=== PATIENT | male | born 1925 | race Caucasian/White ===

== ENCOUNTER 2017-02-06 08:29 | Outpatient (CLI) | payer MEDICARE, BC ==
[~2017-02-06] VITALS: Ht 177.8 cm; Wt 96.0 kg
--- NOTE | ~2017-02-06 | CATH ---
Cardiac Diagnostic Report Demographics Patient Name EROS Gould Gender Male Date of 1925 Age 89 year(s) Patient Number [id number] Date of Study 02/06/2017 Visit Number [id number] Room Number G63[address] [place] [id number] Ht 182.88 cm Wt 96 kg Referring [facility] Primary Physician Physician Gigi Steward MD Performing [facility] Secondary Physician Physician Gigi Steward MD Diagnostic [facility] Assisting Physician Physician Gigi Steward MD Interventional Physician Cutter [facility]ana Room Physician Findings and Conclusions Diagnostic Findings and Conclusion Severe three vessel disease Severe Diagnostic Recommendations TAVR +PCI's versus Re-do CABG and AVR Procedure Description The patient was brought to the diagnostic cardiac catheterization-EP laboratory in the fasting, non-sedated state. Informed consent was obtained in the written and verbal form after the risks and benefits were explained. The patient had no further questions and agreed to proceed. The planned puncture-incision site(s) were shaved and prepped with ChloraPrep and draped in the usual sterile manner. Conscious sedation, supplemental oxygen, and pain control medications were delivered by a registered nurse under physician guidance. Surface ECG rhythm, blood pressure measurement, and pulse oximetry were monitored throughout the procedure. Arterial access. The access site was infiltrated with lidocaine. The vessel was entered with the Seldinger technique. A sheath was advanced into the vessel and used for catheter placement. Venous access. The access site was infiltrated with 2% lidocaine. The vessel was entered with the Seldinger technique. A sheath was advanced into the vessel and used for catheter placement. Selective left coronary angiography. A catheter was advanced into the left coronary vessel ostium under Fluoroscopic guidance. Contrast was injected by hand. Images were obtained in multiple projections. Selective right coronary angiography. A catheter was advanced into the right coronary vessel ostium under fluoroscopic guidance. Contrast was injected by hand. Images were obtained in multiple projections. Selective SVG angiography. A catheter was advanced into the graft proximal anastomosis under fluoroscopic guidance. Contrast was injected by hand. Images were obtained in multiple projections. Selective LÓPEZ graft angiography. A catheter was advanced into the left internal mammary graft ostium under fluoroscopic guidance. Contrast was injected by hand. Images were obtained in multiple projections. Left heart catheterization. A catheter was advanced across the aortic valve to the left ventricle under fluoroscopic guidance. Resting hemodynamics were obtained. Right heart catheterization. A Monroe Evi catheter was successfully advanced to the right atrium, right ventricle, pulmonary artery, and pulmonary artery wedge position under fluoroscopic guidance. Resting hemodynamics were obtained. Measurements included pressures, arterial and venous oxygen saturation samples, and cardiac output. The Monroe was removed without difficulty. Arterial and Venous hemostasis was achieved. The patient was transferred to a regular nursing floor via cart accompanied by a nurse. The patient left the laboratory in stable condition. Diagnostic Cath Status: Elective Procedure Procedure Type Diagnostic procedure:Angiography:, RHC/LHC w/Grafts Indications: Dyspnea with exertion and Angina. The procedure was explained in detail to the patient. Risks, complications and alternative treatments were reviewed. Written consent was obtained. Medications Reviewed with Patient prior to Procedure. Angiographic Findings Dominance: Right Cardiac Arteries and Lesion Findings LMCA: Normal (0% Stenosis).patent LAD: Abnormal.LAD 100% mid, 80% distal past LÓPEZ Diag 99% ostial Lesion on Mid LAD: Mid subsection.100% stenosis . Lesion on Dist LAD: Distal subsection.80% stenosis . Lesion on 1st Diag: Ostial.99% stenosis . LCx: Abnormal.30% OM 30% Lesion on Prox CX: Proximal subsection.30% stenosis . Lesion on Lat 1st Ob Nevin: Proximal subsection.30% stenosis . RCA: Abnormal.75% mid PL 99% Lesion on Mid RCA: Mid subsection.75% stenosis . Lesion on 1st RPL: Ostial.99% stenosis . Ramus: Abnormal.30% prox Lesion on Ramus: Proximal subsection.30% stenosis . Graft Lesions Lesion on Aorta Right to R PDA: Distal body.99% stenosis . Cardiac Grafts - There is a Vein graft that originates at the Aorta Right and attaches to the R PDA. - There is a Free LÓPEZ graft that originates at the LÓPEZ and attaches to the Mid LAD. Coronary Tree Procedure Data Procedure Date Date: 02/06/2017Start: 11:21 AMEnd: 12:09 PM Entry Locations - Retrograde Percutaneous access was performed through the Right Femoral artery (Primary location). A 6 Fr sheath was inserted. Hemostasis was successfully obtained using Angio-Seal STS PLUS ([facility]). Closure Comments: [id number] by dr Hammond. - Antegrade Percutaneous access was performed through the Right Femoral vein. A 6 Fr sheath was inserted. Hemostasis was successfully obtained using Manual Compression. Closure Comments: pressure held by Gisella Baker. Procedure Medications Order and Administration + + +-------+------+ !Time !Medication !Dosage !Route ! + + +-------+------+ !02/06/2017 11:25 AM !Fentanyl !25 mcg !I.V. ! + + +-------+------+ !02/06/2017 11:41 AM !Fentanyl !50 mcg !I.V. ! + + +-------+------+ Devices Used - A6 Fr. Balloon Wedge Catheterwas used for:Right heart cath. - A6 Fr. BS AL1 Diag. Catheterwas used for:Valve Crossing. - A6 Fr. Dual Lumen Pigtailwas used for:Valve Crossing. - A6 Fr. BS JL 4 Diag. Catheterwas used for:Left coronary angiography. - A6 Fr. BS JR 4 Diag. Catheterwas used for:Right coronary angiography. - A6 Fr. BS IMT Diag. Catheterwas used for:LÓPEZ. - A6 Fr. MPA2 Diag. Catheterwas used for:SVG. Contrast Material - Isovue [id number] ml Fluoroscopy Time: Diagnostic: 8:42 minutes. Total: 8:42 minutes. Fluoroscopy Dose: Diagnostic: 792 mGy. Total: 792 mGy. Estimated Blood Loss: 15 ml. Medical History Allergies - Other:(erythromycin, statin, levofloxin). Risk Factors The patient risk factors include:prior PCI on 08/02/2013; prior CABG on 08/11/1994;peripheral arterial disease, physical activity, hypertension, family history of premature CAD, last creatinine: 1.8 mg/dl, creatinine clearance: 37.78 ml/min, dyslipidemia and former tobacco use. Admission Data Admission Date: 02/06/2017 Admission Time: 08:29 AM Admit Source: Other Insurance Payors: Medicare. Clinical Evaluation Leading to Procedure - The patient's CAD presentation was assessed as: Stable angina. - The patient's anginal syndrome during the past two weeks was assessed as: Class III according to the [place] Cardiovascular Society Classification System (CCS). Anti-anginal medications were prescribed during the past two weeks. The medications are: Beta Blockers, Long Acting Nitrates and Other. - The patient has been in a state of heart failure within the past two weeks. - The patient's heart failure status was assessed as NYHA Class III, with CHF symptoms of MATEHW. Snapshots Hemodynamics Condition: Rest O2 Consumption: Estimated: 239.39Heart Rate: 62 bpm Oxygen Saturation +--------+-----+----+ +---+ + !Location!pCO2 !pO2 !% Saturation !Hgb!O2 Content ! +--------+-----+----+ +---+ + !FA ! ! !92.3 ! ! ! +--------+-----+----+ +---+ + !PA ! ! !62.6 ! ! ! +--------+-----+----+ +---+ + Pressures (mmHg) +-----+ + !Site !Pressure ! +-----+ + !RA !04/19 (7) ! +-----+ + !RV !40/3 ,7 ! +-----+ + !PCW ! (16) ! +-----+ + !PA !38/16 (24) ! +-----+ + !AO !150/52 (95) ! +-----+ + !LV !174/13 ,21 ! +-----+ + !AO !147/61 (94) ! +-----+ + !LV !169/8 ,16 ! +-----+ + !AO !148/57 (90) ! +-----+ + !LV !170/9 ,20 ! +-----+ + !AO !154/55 (92) ! +-----+ + !LV !177/8 ,20 ! +-----+ + !AO !149/56 (91) ! +-----+ + !LV !172/6 ,18 ! +-----+ + !AO !156/54 (93) ! +-----+ + !LV !179/7 ,20 ! +-----+ + !AO !160/52 (92) ! +-----+ + !LV !176/7 ,17 ! +-----+ + !AO !151/49 (88) ! +-----+ + Cardiac Output +------+ + + + !Method!CO (l/min) !CI (l/min/m2) !SV (ml) ! +------+ + + + !Bakari !4.56 !2.1 !74.02 ! +------+ + + + Valve Gradients and Areas + +--------+--------+--------+---------+ + + !Valve !Peak !Mean !Area !Index !Flow !Source ! + +--------+--------+--------+---------+ + + !Aortic !13 !18 !1.32 !0.61 !248.77 !Bakari ! + +--------+--------+--------+---------+ + + !Aortic !13 !18 ! ! ! ! ! + +--------+--------+--------+---------+ + + Shunts Oxygen Values O2 Capacity 176.8 O2 Consumption 239.39 Flows (l/min) Qs 4.56 Vascular Resistance (dynes x sec x cm-5) + +-----+----+----+----+---------+-------+ !CO method !TSVR !SVR !TPVR!PVR !TPVR/TSVR!PVR/SVR! + +-----+----+----+----+---------+-------+ !Bakari !19.28!17.8!5.35!1.92!0.28 !0.11 ! + +-----+----+----+----+---------+-------+ !Qp or Qs !19.28!17.8! ! ! ! ! + +-----+----+----+----+---------+-------+ Signatures dtt: Herber Hammond dtd: 02/06/17 [facility] Physician Self Edit
[~2017-02-06 08:29] MED LIST: ASPIRIN EC81 MG PO; FISH OIL 1,2001 EACH PO; FLOMAX0.4 MG PO; ISOSORBIDE MONO60 MG PO; METOPROLOL TART25 MG PO; NORVASC5 MG PO; PLAVIX75 MG PO; PROTONIX40 MG PO
[2017-02-06 09:45] LABS: ALBUMIN 3.6 gm/dL (3.5-5.0); CALCIUM 8.6 mg/dL (8.5-10.5); CREATININE 1.8 mg/dL (0.6-1.3); TOTAL BILIRUBIN 0.7 mg/dL (0.0-1.5); TOTAL PROTEIN 6.8 g/dL (6.0-8.4)
[2017-02-06 09:58] LABS: BASOPHIL % 0.3 %; EOSINOPHIL # 0.2 K/uL (0.0-0.5); EOSINOPHIL % 2.9 %; HEMATOCRIT 39.5 % (33.0-50.0); IMMATURE GRANULOCYTE % 0.3 %; LYMPHOCYTE # 2.7 K/uL (0.8-4.0); LYMPHOCYTE % 41.1 %; MCH 30.2 pg (27.0-34.0); MCHC 32.9 gm/dL (32.0-36.5); MCV 91.9 fl (83.0-98.0); MONOCYTE # 0.6 K/uL (0.0-1.0); MONOCYTE % 8.5 %; MPV 8.7 fl (9.4-12.4); NEUTROPHIL # (ANC) 3.1 K/uL (1.4-9.0); NEUTROPHIL % 46.9 %; NRBC % 0 /100WBC (0-0.00); PLATELET COUNT 200 K/uL (150-450); RDW-CV 13.3 % (11.9-14.6); WBC 6.5 K/uL (4.0-11.0)
[2017-02-06 10:07] LABS: PROTIME 10.5 SECONDS (9.8-11.4); PTT 28 SECONDS (25-32)
== END 2017-02-06 17:15 | disposition disaster alternative care site (69) ==
LOC: GCAT 08:29 → GPCU 08:29 → GOPP 09:00 → GPOC 09:00 → GCAT 17:15 → GPOC 02-07 14:00
PROVIDERS: Internal Medicine Cardiovascular Disease
PROC: B2121ZZ Fluoroscopy of Single Coronary Artery Bypass Graft using Low Osmolar Contrast (ICD-10-PCS; principal; 2017-02-06)
PROC: B2161ZZ Fluoroscopy of Right and Left Heart using Low Osmolar Contrast (ICD-10-PCS; 2017-02-06)
PROC: B2181ZZ Fluoroscopy of Left Internal Mammary Bypass Graft using Low Osmolar Contrast (ICD-10-PCS; 2017-02-06)
PROC: B2111ZZ Fluoroscopy of Multiple Coronary Arteries using Low Osmolar Contrast (ICD-10-PCS; 2017-02-06)
PROC: 4A023N8 Measurement of Cardiac Sampling and Pressure, Bilateral, Percutaneous Approach (ICD-10-PCS; 2017-02-06)
DX: I35.0 Nonrheumatic aortic (valve) stenosis (principal); I48.91 Unspecified atrial fibrillation; I25.118 Atherosclerotic heart disease of native coronary artery with other forms of angina pectoris; I25.708 Atherosclerosis of coronary artery bypass graft(s), unspecified, with other forms of angina pectoris; I25.82 Chronic total occlusion of coronary artery; I12.9 Hypertensive chronic kidney disease with stage 1 through stage 4 chronic kidney disease, or unspecified chronic kidney disease; N18.3 Chronic kidney disease, stage 3 (moderate); E78.5 Hyperlipidemia, unspecified; R94.31 Abnormal electrocardiogram [ECG] [EKG]
CPT/HCPCS: C1760; C1887; J1644; J2001; J3010; J7030

== ENCOUNTER 2017-02-14 06:36 | Outpatient (CLI) | payer MEDICARE, BC ==
[~2017-02-14] VITALS: Ht 177.8 cm; Wt 96.9 kg
--- NOTE | ~2017-02-14 | CATH ---
Cardiac Interventional Report Demographics Patient Name EROS Gould Gender Male Date of 1925 Age 89 year(s) Patient Number [id number] Date of Study 02/14/2017 Visit Number [id number] Room Number G6399 [employer] [place] Ht 177.8 cm Wt 96 kg Referring [facility] Primary Physician Physician Gigi Joseph MD Performing [facility] Secondary Physician Physician Gigi Steward MD Diagnostic Assisting Physician Physician Interventional [facility] Physician Civil Engineer In Training Physician Gigi Steward MD Findings and Conclusions Interventional Findings and Conclusion Successful LETY of Diagonal. Interventional Recommendations Continue aspirin and plavix Staged PCI to [place] RCA and RCA SVG Procedure Description The patient was brought to the diagnostic cardiac catheterization-EP laboratory in the fasting, non-sedated state. Informed consent was obtained in the written and verbal form after the risks and benefits were explained. The patient had no further questions and agreed to proceed. The planned puncture-incision site(s) were shaved and prepped with Chloroprep and draped in the usual sterile manner. Conscious sedation and pain control medications were delivered by a registered nurse under physician guidance. Surface ECG rhythm, blood pressure measurement, and pulse oximetry were monitored throughout the procedure. Angioplasty and Stent Placement: A guiding catheter was used to intubate the vessel. A 0.14 wire was then used to cross the lesion. A balloon catheter was placed across the lesion and inflated. The balloon catheter was then removed. A Drug Eluting Stent was placed and inflated. Post placement angiograms were performed. Hemostasis: The sheath was removed and a R Band was placed. Hemostasis was achieved. Hemostasis: The sheath was removed and an Angioseal was placed. Hemostasis was achieved. The patient was transferred to the nursing floor with continuous monitoring via cart accompanied by a nurse. The patient left the laboratory in stable condition. Procedure Procedure Type PCI procedure:Drug Eluting Coronary Stent:, Diagonal, PTCA:, Diagonal Indications: Chest discomfort. The procedure was explained in detail to the patient. Risks, complications and alternative treatments were reviewed. Written consent was obtained. Medications Reviewed with Patient prior to Procedure. Angiographic Findings Dominance: Right Cardiac Arteries and Lesion Findings LMCA: See previous cath report LAD: Lesion on 1st Diag: Ostial.95% stenosis 20 mm length reduced to 0%. Pre procedure GERA III flow was noted. Post Procedure GERA III flow was present. The guidewire cross was successful.The lesion was diagnosed as a high risk lesion.Culprit lesion. Treatment results:Interventional treatment was successful. Devices used - Whisper Wire .014 x 190. Number of passes: 1. - Emerge Balloon 1.5 x 8. 2 inflation(s) to a max pressure of: 14 jaylen. - Emerge Balloon 2.25 x 12. 1 inflation(s) to a max pressure of: 14 jaylen. - Promus Premier 2.25 x 20 Stent. 1 inflation(s) to a max pressure of: 14 jaylen. - NC Emerge Balloon 2.5 x 12. 2 inflation(s) to a max pressure of: 18 jaylen. LCx: See previous cath report RCA: See previous cath report Cardiac Grafts - There is a Vein graft that originates at the Aorta Right and attaches to the R PDA. - There is a Free LÓPEZ graft that originates at the LÓPEZ and attaches to the Mid LAD. Coronary Tree Procedure Data Procedure Date Date: 02/14/2017Start: 11:37 AM Entry Locations - Retrograde Percutaneous access was performed through the Right Radial artery (Primary location). A 6 Fr sheath was inserted. Unsuccessful closure attempt was performed using: an R band. Hemostasis was successfully obtained using Mechanical Compression. Closure Comments: 20 cc of air in the R band deployed by Mayito. - Retrograde Percutaneous access was performed through the Right Femoral artery. A 6 Fr sheath was inserted. Hemostasis was successfully obtained using Angio-Seal STS PLUS ([facility]). Closure Comments: Deployed by Dr. Hall. Procedure Medications Order and Administration + + +--------+ + !Time !Medication !Dosage !Route ! + + +--------+ + !02/14/2017 !Fentanyl !25 mcg !I.V. ! !11:33 AM ! ! ! ! + + +--------+ + 02/14/2017 !PAE Radial Cocktail: Heparin 5000 units,! !I.A. ! !11:38 AM !Nitroglycerin 200mcg, Verapamil 3 mg ! ! ! ! !(ACC_3) ! ! ! + + +--------+ 02/14/2017 !Heparin (ACC_3) !3000 !I.V. bolus! !11:38 AM ! !units ! ! + + +--------+ 02/14/2017 !Fentanyl !50 mcg !I.V. ! !11:44 AM ! ! ! ! + + +--------+ + Devices Used - A6 Fr. XBLAD 3.5 Guide Catheterwas used for:LAD Intervention. Contrast Material - Isovue [id number] ml Fluoroscopy Time: Diagnostic: 11:00 minutes. Total: 11:00 minutes. Fluoroscopy Dose: Diagnostic: 1060 mGy. Total: 1060 mGy. Estimated Blood Loss: 25 ml. Medical History Allergies - Other:(erythromycin, statin, levofloxin). - Other:(Erytromycin, levofloxacin, statin). Risk Factors The patient risk factors include:prior PCI on 08/02/2013; prior CABG on 08/10/1995;peripheral arterial disease, hypercholesterolemia, treated hypertension, family history of premature CAD, last creatinine: 1.8 mg/dl, creatinine clearance: 37.78 ml/min, dyslipidemia, former tobacco use and prior heart failure . Admission Data Admission Date: 02/14/2017 Admission Time: 06:36 AM Admit Source: Other Insurance Payors: Medicare. Admission Medications + +------+------+ + + + + !Medication !Dosage!Times !Last !Last !Administered !Comments ! ! ! !Per !Delivery !Delivery ! ! ! ! ! !Day !Date !Time ! ! ! + +------+------+ + + + + !Aspirin ! ! ! ! !Yes ! ! !(any) ! ! ! ! ! ! ! + +------+------+ + + + + !Beta Piotr! ! ! ! !Yes ! ! !(any) ! ! ! ! ! ! ! + +------+------+ + + + + !Clopidogrel ! ! ! ! !Yes ! ! + +------+------+ + + + + Clinical Evaluation Leading to Procedure - The patient's CAD presentation was assessed as: Unstable angina. - The patient's anginal syndrome during the past two weeks was assessed as: Class IV according to the [place] Cardiovascular Society Classification System (CCS). Anti-anginal medications were prescribed during the past two weeks. The medications are: Beta Blockers, Ca channel Blockers and Long Acting Nitrates. - The patient has been in a state of heart failure within the past two weeks. - The patient's heart failure status was assessed as NYHA Class II. Snapshots Hemodynamics Condition: Rest O2 Consumption: Estimated: 235.24Heart Rate: 62 bpm Pressures (mmHg) +-----+ + !Site !Pressure ! +-----+ + !AO !152/55 (91) ! +-----+ + Shunts Oxygen Values O2 Capacity 176.8 O2 Consumption 235.24 Signatures dtt: Herber Hammond dtd: 02/14/17 1137 Physician Self Edit
[2017-02-14 10:27] LABS: BASOPHIL % 0.6 %; EOSINOPHIL # 0.2 K/uL (0.0-0.5); EOSINOPHIL % 3.6 %; HEMATOCRIT 39.7 % (33.0-50.0); HEMOGLOBIN 13.2 g/dL (11.0-16.0); IMMATURE GRANULOCYTE % 0.2 %; LYMPHOCYTE # 2.8 K/uL (0.8-4.0); LYMPHOCYTE % 42.1 %; MCH 30.8 pg (27.0-34.0); MCHC 33.2 gm/dL (32.0-36.5); MCV 92.5 fl (83.0-98.0); MONOCYTE # 0.5 K/uL (0.0-1.0); MPV 9.1 fl (9.4-12.4); NEUTROPHIL # (ANC) 3.1 K/uL (1.4-9.0); NEUTROPHIL % 46.5 %; NRBC % 0 /100WBC (0-0.00); PLATELET COUNT 208 K/uL (150-450); RBC 4.29 M/uL (3.50-5.50); RDW-CV 13.2 % (11.9-14.6); WBC 6.6 K/uL (4.0-11.0)
[2017-02-14 10:43] LABS: ALBUMIN 3.3 gm/dL (3.5-5.0); ANION GAP 12.4 (10.0-19.0); CALCIUM 8.3 mg/dL (8.5-10.5); CREATININE 1.8 mg/dL (0.6-1.3); POTASSIUM 4.4 mMol/L (3.7-5.1); TOTAL PROTEIN 6.6 g/dL (6.0-8.4)
[2017-02-14 10:50] LABS: TOTAL BILIRUBIN 0.5 mg/dL (0.0-1.5)
[2017-02-14 13:38] LABS: CPK 75 IU/L (35-332)
--- NOTE | 2017-02-14 17:04 | NUR ---
Significant Event: Patient admitted following a scheduled stent placement. Patient needs a total of 3 stents, however because of kidney disease, patient only receive one stent. Other 2 stents will be placed at a lated date. Patient is alert and oriented x3. Follows commands. Denies Higgins, Denies N/T. PERRLA. Extremities are pink, warm, strong, pulses palpabe. Ambulation not observed r/t recent stent placement. Lungs are clear on RA. Paced. Bowel sounds are active. Voids per urinal at this time- no difficulty. Incision to right wrist. Incision to right groin. Pleasant and cooperative with cares. at bedside, Follow up:
--- NOTE | 2017-02-14 17:08 | NUR ---
Significant Event: Patient admitted to hospital following stent placement. Patient needs a total of 3 stents, however because of kidney disease, patient received one stent today. He will receive the other two at a later date. Patient is alert and oriented x3. Follows commands. PERRLA. Denies BETANCOURT, N/T. Extremities are pink, warm, good cap refill, no edema, pulses palpable. Ambulation not observed r/t recent stent placement. Lungs are clear on RA. Paced. Incision to right wrist and right groin. BSA. Voids per urinal at this time. Pleasant and cooperative with cares. at bedside Follow up:
[2017-02-14 19:23] LABS: CPK 78 IU/L (35-332)
--- NOTE | 2017-02-15 05:08 | NUR ---
A&O. Cooperative. VSS. Afebrile. Paced. Stent placed yesterday. Right groin site CDI. Right wrist (attempted site) has bandaid. SBA. Uses urinal independently. RA. Pacer. C/O left shulder pain- warm blanket applied and effective. Continue plan of care, discharge when appropriate, probably today.
[2017-02-15 09:13] LABS: ALBUMIN 3.5 gm/dL (3.5-5.0); ANION GAP 12.6 (10.0-19.0); CALCIUM 8.3 mg/dL (8.5-10.5); CREATININE 1.7 mg/dL (0.6-1.3); POTASSIUM 4.6 mMol/L (3.7-5.1); TOTAL PROTEIN 6.8 g/dL (6.0-8.4)
[2017-02-15 09:15] LABS: TOTAL BILIRUBIN 0.7 mg/dL (0.0-1.5)
== END 2017-02-15 13:45 | disposition disaster alternative care site (69) ==
LOC: GPCU 06:36 → GOPP 06:36 → GPCU 12:49 → GOPP 02-15 13:45
PROVIDERS: Internal Medicine Cardiovascular Disease
PROC: 027034Z Dilation of Coronary Artery, One Artery with Drug-eluting Intraluminal Device, Percutaneous Approach (ICD-10-PCS; principal; 2017-02-14)
DX: I25.10 Atherosclerotic heart disease of native coronary artery without angina pectoris (principal); I35.2 Nonrheumatic aortic (valve) stenosis with insufficiency; I12.9 Hypertensive chronic kidney disease with stage 1 through stage 4 chronic kidney disease, or unspecified chronic kidney disease; N18.9 Chronic kidney disease, unspecified
CPT/HCPCS: C1725; C1760; C1769; C1874; C1887; C1894; C9600; J1644; J2001; J3010; J7030

== ENCOUNTER 2017-02-21 09:44 | Outpatient (CLI) | payer MEDICARE, BC ==
[~2017-02-21] VITALS: Ht 177.8 cm; Wt 97.2 kg
[2017-02-21 10:34] LABS: BASOPHIL % 0.4 %; EOSINOPHIL # 0.3 K/uL (0.0-0.5); EOSINOPHIL % 4.1 %; HEMATOCRIT 39.6 % (33.0-50.0); HEMOGLOBIN 13.4 g/dL (11.0-16.0); IMMATURE GRANULOCYTE % 0.3 %; LYMPHOCYTE # 2.8 K/uL (0.8-4.0); LYMPHOCYTE % 37.1 %; MCH 31.5 pg (27.0-34.0); MCHC 33.8 gm/dL (32.0-36.5); MONOCYTE # 0.6 K/uL (0.0-1.0); MONOCYTE % 7.5 %; MPV 9.2 fl (9.4-12.4); NEUTROPHIL # (ANC) 3.8 K/uL (1.4-9.0); NEUTROPHIL % 50.6 %; NRBC % 0 /100WBC (0-0.00); PLATELET COUNT 222 K/uL (150-450); RBC 4.26 M/uL (3.50-5.50); RDW-CV 13.2 % (11.9-14.6); WBC 7.5 K/uL (4.0-11.0)
[2017-02-21 10:42] LABS: INR - (THERAPEUTIC) 0.96 (0.92-1.07); PROTIME 10.1 SECONDS (9.8-11.4); PTT 28 SECONDS (25-32)
[2017-02-21 10:59] LABS: ALBUMIN 3.7 gm/dL (3.5-5.0); ANION GAP 12.6 (10.0-19.0); CALCIUM 8.8 mg/dL (8.5-10.5); CREATININE 1.8 mg/dL (0.6-1.3); POTASSIUM 4.6 mMol/L (3.7-5.1); TOTAL PROTEIN 7.1 g/dL (6.0-8.4)
[2017-02-21 11:05] LABS: TOTAL BILIRUBIN 0.5 mg/dL (0.0-1.5)
[2017-02-21 17:55] LABS: CPK 89 IU/L (35-332)
--- NOTE | 2017-02-21 18:53 | NUR ---
Significant Event: ALERT& ORIENTED. VSS, HYPERTENSIVE, ROOM AIR. TRACED BLOODY DRAINAGE TO L)GROIN. CSM INTACT. BEDREST UNTIL 2044. REINFORCED KEEPING LEG STRAIGHT. NS AT 100ML/HR [id number]. VD OF 175. REGULAR DIET FOR DINNER. Follow up: DC TO HOME TOMORROW
--- NOTE | 2017-02-22 05:09 | NUR ---
A/O. HR PACED AT 60. SBP 120-160s. AFEBRILE. ROOM AIR. L) GROIN OOZY DRESSING CHANGED AND MANUAL PRESSURE HELD FOR 5-7 MIN. NOW C/D/I SOFT NONTENDER. DENIES PAIN. VOID PER URINAL. NO BM. SBA WALKED IN HALLWAY. PLAN FOR DISMISSAL TODAY.
[2017-02-22 06:04] LABS: ALBUMIN 3.1 gm/dL (3.5-5.0); ANION GAP 12.7 (10.0-19.0); CALCIUM 8.2 mg/dL (8.5-10.5); CREATININE 1.7 mg/dL (0.6-1.3); POTASSIUM 4.7 mMol/L (3.7-5.1); TOTAL BILIRUBIN 0.5 mg/dL (0.0-1.5); TOTAL PROTEIN 5.9 g/dL (6.0-8.4)
== END 2017-02-22 14:22 | disposition disaster alternative care site (69) ==
LOC: GPCU 09:44 → GPOC 09:44 → GPCU 15:43 → GPOC 02-22 14:22
PROVIDERS: Internal Medicine Cardiovascular Disease
DX: I25.10 Atherosclerotic heart disease of native coronary artery without angina pectoris (principal); R94.31 Abnormal electrocardiogram [ECG] [EKG]; Z95.0 Presence of cardiac pacemaker
CPT/HCPCS: C1725; C1760; C1769; C1874; C1884; C1887; C9604; J1644; J2001; J2250; J3010; J7030; J7060

== ENCOUNTER 2017-02-27 05:59 | Outpatient (CLI) | payer MEDICARE, BC ==
[~2017-02-27] VITALS: Ht 175.3 cm; Wt 95.7 kg
--- NOTE | ~2017-02-27 | CATH ---
Cardiac Interventional Report Demographics Patient Name EROS Gould Gender Male Date of 1925 Age 89 year(s) Patient Number [id number] Date of Study 02/27/2017 Visit Number [id number] Room Number G63[address] [place] [id number] Ht 177.8 cm Wt 95.7 kg Referring Chuck Joseph Primary Physician Physician Performing Efstratiou Secondary Physician Physician Gigi Steward MD Diagnostic Assisting Physician Physician Interventional Efstratiou Physician Nutrition Coordinator Physician Gigi Steward MD Findings and Conclusions Interventional Findings and Conclusion 100% distal RCA plan to PCI Interventional Recommendations Successful PTCA to distal RCA It appears that the graft that was stented previously supplies the PLB as well. So there is no need to stent the nikolski vessel. Continue ASA and plavix Procedure Description The patient was brought to the diagnostic cardiac catheterization-EP laboratory in the fasting, non-sedated state. Informed consent was obtained in the written and verbal form after the risks and benefits were explained. The patient had no further questions and agreed to proceed. The planned puncture-incision site(s) were shaved and prepped with ChloraPrep and draped in the usual sterile manner. Conscious sedation, supplemental oxygen, and pain control medications were delivered by a registered nurse under physician guidance. Surface ECG rhythm, blood pressure measurement, and pulse oximetry were monitored throughout the procedure. Arterial access. The access site was infiltrated with lidocaine. The vessel was entered with the Seldinger technique. A sheath was advanced into the vessel and used for catheter placement. Angioplasty: A guiding catheter was used to intubate the vessel. A 0.14 wire was used to cross the lesion. A balloon was positioned across the lesion and inflated. Post placement angiograms were performed. Arterial artery hemostasis was achieved. The patient was transferred to a regular nursing floor via cart accompanied by a nurse. The patient left the laboratory in stable condition. Interventional Cath Status: Elective Procedure Procedure Type PCI procedure:PTCA:, RCA Indications: Cardiac catheterization indicating PCI. The procedure was explained in detail to the patient. Risks, complications and alternative treatments were reviewed. Written consent was obtained. Medications Reviewed with Patient prior to Procedure. Angiographic Findings Dominance: Right Cardiac Arteries and Lesion Findings There is a previous stent on 1st Diag Ostial. RCA: Lesion on Dist RCA: Distal subsection.100% stenosis reduced to 0%. Pre procedure GERA 0 flow was noted. Post Procedure GERA II flow was present. The guidewire cross was successful.The lesion was diagnosed as a moderate risk lesion.Chronic total occlusion. Devices used - Whisper Wire .014 x 190. Number of passes: 1. - Emerge Balloon 2.0 x 20. 2 inflation(s) to a max pressure of: 22 jaylen. - NC Emerge Balloon 2.0 x 12. 1 inflation(s) to a max pressure of: 25 jaylen. Lesion on Mid RCA: Mid subsection.Culprit lesion. Devices used - NC Emerge Balloon 2.0 x 12. 1 inflation(s) to a max pressure of: 20 jaylen. Cardiac Grafts - There is a Vein graft that originates at the Aorta Right and attaches to the R PDA.There is a previous stent on Aorta Right to R PDA Middle Body. There is a previous stent on Aorta Right to R PDA Middle Body. - There is a Free LÓPEZ graft that originates at the LÓPEZ and attaches to the Mid LAD. Coronary Tree Procedure Data Procedure Date Date: 02/27/2017Start: 09:09 AMEnd: 09:40 AM Entry Locations - Retrograde Percutaneous access was performed through the Right Femoral artery (Primary location). A 6 Fr sheath was inserted. Hemostasis was successfully obtained using Angio-Seal STS PLUS ([facility]). Closure Comments: Deployed by DR Hammond. Procedure Medications Order and Administration + + + + + !Time !Medication !Dosage !Route ! + + + + + !02/27/2017 09:05 AM !Versed !1 mg !I.V. ! + + + + + !02/27/2017 09:08 AM !Oxygen !2 l/min !NC ! + + + + + !02/27/2017 09:09 AM !Fentanyl !50 mcg !I.V. ! + + + + + !02/27/2017 09:10 AM !Heparin (ACC_3) !8000 units !I.V. bolus ! + + + + + !02/27/2017 09:29 AM !0.9% NaCl !300 ml !I.V. bolus ! + + + + + Devices Used - A6 Fr. HS Guide Catheterwas used for:SVG Intervention. Contrast Material - Isovue 52345 ml Fluoroscopy Time: Diagnostic: 7:12 minutes. Total: 7:12 minutes. Fluoroscopy Dose: Diagnostic: 674 mGy. Total: 674 mGy. Estimated Blood Loss: 15 ml. Additional [facility] PCI Information PCI Indication:Staged PCI. Medical History Performed Procedures and Imaging Results - No [facility] stress or imaging studies were performed. Allergies - Other:(erythromycin, statin, levofloxin). - Other:(Erytromycin, levofloxacin, statin). 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 Admission Data Admission Date: 02/27/2017 Admission Time: 05:59 AM Admit Source: Other Insurance Payors: Medicare. Admission Medications + +------+------+---------+ + + + !Medication !Dosage!Times !Last !Last !Administered !Comments ! ! ! !Per !Delivery !Delivery ! ! ! ! ! !Day !Date !Time ! ! ! + +------+------+---------+ + + + !Beta Piotr ! ! ! ! ! ! ! !(any) ! ! ! ! ! ! ! + +------+------+---------+ + + + !Aspirin (any)! ! ! ! ! ! ! + +------+------+---------+ + + + !IGNACIA Inhibitor! ! ! ! ! ! ! !(any) ! ! ! ! ! ! ! + +------+------+---------+ + + + !Clopidogrel ! ! ! ! ! ! ! + +------+------+---------+ + + + !Non-Statin ! ! ! ! ! ! ! !(any) ! ! ! ! ! ! ! + +------+------+---------+ + + + !Nitrates (iv ! ! ! ! ! ! ! !or buccal) ! ! ! ! ! ! ! + +------+------+---------+ + + + Clinical Evaluation Leading to Procedure - The patient's CAD presentation was assessed as: Stable angina. - The patient's anginal syndrome during the past two weeks was assessed as: Class III according to the [place] Cardiovascular Society Classification System (CCS). Anti-anginal medications were prescribed during the past two weeks. The medications are: Beta Blockers, Ca channel Blockers, Long Acting Nitrates and Other. Snapshots Hemodynamics Condition: Rest O2 Consumption: Estimated: 236.27Heart Rate: 63 bpm Pressures (mmHg) +-----+ + !Site !Pressure ! +-----+ + !AO !136/52 (83) ! +-----+ + Shunts Oxygen Values O2 Capacity 182.24 O2 Consumption 236.27 Signatures dtt: Herber Hammond dtd: 02/27/17 0909 Physician Self Edit
--- NOTE | ~2017-02-27 | CATH ---
Cardiac Interventional Report Demographics Patient Name EROS Golud Gender Male Date of 1925 Age 89 year(s) Patient Number [id number] Date of Study 02/21/2017 Visit Number [id number] [place] [id number] Ht 177.8 cm Wt 97.2 kg Referring Jake Woods Primary Physician Physician Performing Efstratiou Secondary Physician Physician Gigi Steward MD Diagnostic Efstratiou Assisting Physician Physician Gigi Steward MD Interventional Efstratiou Physician Financial Accounting Analyst Physician Gigi Steward MD Findings and Conclusions Interventional Findings and Conclusion 95% stenosis in mid graft to PDA successful LETY X2 (overlapping) with filterwire protection Interventional Recommendations Continue ASA and Plavix Staged PCI to [place] RCA if renal function stable Procedure Description The patient was brought to the diagnostic cardiac catheterization-EP laboratory in the fasting, non-sedated state. Informed consent was obtained in the written and verbal form after the risks and benefits were explained. The patient had no further questions and agreed to proceed. The planned puncture-incision site(s) were shaved and prepped with ChloraPrep and draped in the usual sterile manner. Conscious sedation, supplemental oxygen, and pain control medications were delivered by a registered nurse under physician guidance. Surface ECG rhythm, blood pressure measurement, and pulse oximetry were monitored throughout the procedure. Arterial access. The access site was infiltrated with lidocaine. The vessel was entered with the Seldinger technique. A sheath was advanced into the vessel and used for catheter placement. Stent: A guiding catheter was used to intubate the vessel. A 0.14 wire was used to cross the lesion. A stent was placed. Post placement angiograms were performed. Arterial artery hemostasis was achieved. The patient was transferred to a regular nursing floor via cart accompanied by a nurse. The patient left the laboratory in stable condition. Interventional Cath Status: Elective Procedure Procedure Type PCI procedure:Drug Eluting Coronary Stent:, RCA Indications: Prior PCI with stent placement. The procedure was explained in detail to the patient. Risks, complications and alternative treatments were reviewed. Written consent was obtained. Medications Reviewed with Patient prior to Procedure. Angiographic Findings Dominance: Right There is a previous stent on 1st Diag Ostial. Graft Lesions Lesion on Aorta Right to R PDA: Middle body.95% stenosis 32 mm length reduced to 0%. Pre procedure GERA II flow was noted. Post Procedure GERA III flow was present. A good run off was present.The lesion was diagnosed as a high risk lesion.Culprit lesion. Devices used - Whisper Wire .014 x 190. Number of passes: 1. - Emerge Balloon 2.0 x 12. 2 inflation(s) to a max pressure of: 14 jaylen. - Filterwire 190 cm. Number of passes: 1. - Promus Premier 3.0 x 20 Stent. 1 inflation(s) to a max pressure of: 16 jaylen. - Promus Premier 3.0 x 12 Stent. 2 inflation(s) to a max pressure of: 18 jaylen. Cardiac Grafts - There is a Vein graft that originates at the Aorta Right and attaches to the R PDA (95 % stenosis in mid graft to PDA). - There is a Free LÓPEZ graft that originates at the LÓPEZ and attaches to the Mid LAD. Coronary Tree Procedure Data Procedure Date Date: 02/21/2017Start: 03:38 PMEnd: 04:36 PM Entry Locations - Retrograde Percutaneous access was performed through the Left Femoral artery (Primary location). A 6 Fr sheath was inserted. Hemostasis was successfully obtained using Angio-Seal STS PLUS ([place]). Closure Comments: deployed by Dr. Hall. Procedure Medications Order and Administration + + + + + !Time !Medication !Dosage !Route ! + + + + + !02/21/2017 03:36 PM !Fentanyl !25 mcg !I.V. ! + + + + + 02/21/2017 03:40 PM !Heparin (ACC_3) !8000 units !I.V. bolus ! + + + + + 02/21/2017 03:47 PM !Heparin (ACC_3) !3000 units !I.V. bolus ! + + + + + 02/21/2017 03:53 PM !Nipride !200 mcg !I.C. ! + + + + 02/21/2017 04:15 PM !Nipride !300 mcg !I.C. ! + + + + + Devices Used - A6 Fr. MPA1 JJ Guide Catheterwas used for:SVG Intervention. Contrast Material - Isovue 16290 ml Fluoroscopy Time: Diagnostic: 13:06 minutes. Total: 13:06 minutes. Fluoroscopy Dose: Diagnostic: 949 mGy. Total: 949 mGy. Estimated Blood Loss: 30 ml. Additional [facility] PCI Information PCI Indication:Staged PCI. Medical History Allergies - Other:(erythromycin, statin, levofloxin). - Other:(Erytromycin, levofloxacin, statin). 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 Admission Data Admission Date: 02/27/2017 Admission Time: 06:00 AM Admit Source: Other Admission Medications + +------+------+---------+ + + + !Medication !Dosage!Times !Last !Last !Administered !Comments ! ! ! !Per !Delivery !Delivery ! ! ! ! ! !Day !Date !Time ! ! ! + +------+------+---------+ + + + !Beta Piotr ! ! ! ! ! ! ! !(any) ! ! ! ! ! ! ! + +------+------+---------+ + + + !Aspirin (any)! ! ! ! ! ! ! + +------+------+---------+ + + + !IGNACIA Inhibitor! ! ! ! ! ! ! !(any) ! ! ! ! ! ! ! + +------+------+---------+ + + + !Clopidogrel ! ! ! ! ! ! ! + +------+------+---------+ + + + !Non-Statin ! ! ! ! ! ! ! !(any) ! ! ! ! ! ! ! + +------+------+---------+ + + + !Nitrates (iv ! ! ! ! ! ! ! !or buccal) ! ! ! ! ! ! ! + +------+------+---------+ + + + Clinical Evaluation Leading to Procedure - The patient's CAD presentation was assessed as: Stable angina. - The patient's anginal syndrome during the past two weeks was assessed as: Class III according to the [place] Cardiovascular Society Classification System (CCS). Anti-anginal medications were prescribed during the past two weeks. The medications are: Beta Blockers, Ca channel Blockers, Long Acting Nitrates and Other. Snapshots Hemodynamics Condition: Rest O2 Consumption: Estimated: 246.36Heart Rate: 74 bpm Pressures (mmHg) +-----+ + !Site !Pressure ! +-----+ + !AO !162/53 (94) ! +-----+ + Shunts Oxygen Values O2 Capacity 182.24 O2 Consumption 246.36 Signatures dtt: Herber Hammond dtd: 02/21/17 1538 Physician Self Edit
[2017-02-27 08:45] LABS: ANION GAP 12.5 (10.0-19.0); CALCIUM 8.1 mg/dL (8.5-10.5); CREATININE 1.7 mg/dL (0.6-1.3); POTASSIUM 4.5 mMol/L (3.7-5.1)
== END 2017-02-27 14:14 | disposition disaster alternative care site (69) ==
LOC: GCAT 05:59 → GPCU 05:59 → GOPP 06:00 → GPCU 09:03 → GCAT 14:14
PROVIDERS: Internal Medicine Cardiovascular Disease
PROC: 02703ZZ Dilation of Coronary Artery, One Artery, Percutaneous Approach (ICD-10-PCS; principal; 2017-02-27)
DX: I25.118 Atherosclerotic heart disease of native coronary artery with other forms of angina pectoris (principal); E66.9 Obesity, unspecified; E78.00 Pure hypercholesterolemia, unspecified; E11.9 Type 2 diabetes mellitus without complications; E78.5 Hyperlipidemia, unspecified; I10 Essential (primary) hypertension; Z87.891 Personal history of nicotine dependence; Z95.1 Presence of aortocoronary bypass graft; Z98.61 Coronary angioplasty status; Z82.49 Family history of ischemic heart disease and other diseases of the circulatory system; Z88.1 Allergy status to other antibiotic agents
CPT/HCPCS: C1725; C1760; C1769; C1887; J1644; J2001; J2250; J3010; J7030